=== PATIENT | female | born 1950 | race Caucasian/White ===

== ENCOUNTER → 2018-01-02 | Outpatient (CLI) | payer MEDICARE, OTHER ==
[~2018-01-02] MED LIST: ADV100/50 INH; ALB17R INH; ALB18R INH; ALBU8.5H IH; ASPI-1441 PO; CEPH500C24 PO; CIPHCO EACH EAR; COREDS EACH EAR; FLU45SYR25 IM ONLY; FLUT16SP19 NS; FLUT1AER INH; FLUT1DIS28 IH; FLUT1DIS29 IH; FUR20 PO; FURO-45 PO; GABA-547 PO; GLUC500C29 PO; GUALA600 PO; HYDR-4228 PO; LEV100 PO; LEV112 PO; LEV125 PO; LEV25 PO; LEVO-3 PO; LEVO150T78 PO; MELO-207 PO; METR-160 PO; METR70GE2 PV; MULT-820 PO; OLOOD OU; ONDA4TAB9 PO; OXYC-373 PO; OXYC-823 PO; OXYC5CAP21 PO; PNEI IJ; PNEU0.5D3 IM; PROC10TA95 PO; SULF5DRO OU; TIO18R INH; VALA100059 PO; ZOLP-358 PO; ZOLP-360 PO; [UNRECOGNIZED DRUG - CODE] PO; [UNRECOGNIZED DRUG - CODE] PO; [UNRECOGNIZED DRUG - CODE] PO; [UNRECOGNIZED DRUG - CODE] TD
[2018-01-02 09:31] LABS: PLATELET COUNT, AUTOMATED 225 K/uL (150-450)
== END ==
LOC: LAB 08:39
PROVIDERS: ATTEND Internal Medicine
DX: C34.90 Malignant neoplasm of unspecified part of unspecified bronchus or lung (principal); J44.9 Chronic obstructive pulmonary disease, unspecified; I10 Essential (primary) hypertension; E03.9 Hypothyroidism, unspecified; D75.1 Secondary polycythemia
CPT/HCPCS: 36415; 82040; 82247; 82310; 82374; 82435; 82565; 82607; 82746; 82947; 84075; 84132; 84155; 84295; 84443; 84450; 84460; 84520; 85025

== ENCOUNTER → 2018-01-19 | Outpatient (CLI) | payer MEDICARE, OTHER ==
[~2018-01-19] MED LIST changes: +PREG50CA48 PO
[2018-01-19 16:29] LABS: PLATELET COUNT, AUTOMATED 201 K/uL (150-450)
== END ==
LOC: LAB 16:00
PROVIDERS: ATTEND Internal Medicine
DX: E03.9 Hypothyroidism, unspecified (principal); R53.83 Other fatigue; C34.90 Malignant neoplasm of unspecified part of unspecified bronchus or lung; R20.0 Anesthesia of skin; J44.9 Chronic obstructive pulmonary disease, unspecified
CPT/HCPCS: 36415; 82040; 82247; 82310; 82374; 82435; 82565; 82947; 84075; 84132; 84155; 84295; 84439; 84443; 84450; 84460; 84520; 85025

== ENCOUNTER → 2018-01-21 | Outpatient (CLI) | payer MEDICARE, OTHER ==
[~2018-01-21] MED LIST changes: +GADOBENATE 529MG/1ML 15ML VIAL IVP ONE
--- NOTE | 2018-01-21 14:46 | RADIOLOGY IMAGING REPORT ---
FACILITY: [facility] - [place] PATIENT NAME: Toña Yoder : 1950 MR: [id number] V: [id number] EXAM DATE: ORDERING PHYSICIAN: HODA RODRIGUEZ TECHNOLOGIST: Location: [facility] Patient: Toña Yoder : 1950 Visit/Account:[id number] Date of Sevice: 01/21/2018 BRAIN W W/O CONTRAST History of lung cancer, numbness in both arms and legs x3 months, confusion ADDITIONAL PERTINENT HISTORY: None. COMPARISON STUDIES: July 29, 2017 TECHNIQUE: Multi-planar, multi-sequence brain MRI was performed with and without IV contrast adminis tration. Contrast: 14 mL MultiHance FINDINGS: Ventricles / sulci / fissures: Negative. Masses / hemorrhage / midline shift: Negative. White matter: Patchy T2 hyperintensities are again noted in the govind and in the deep white matter bi laterally that appear relatively unchanged. There is no associated mass effect or restricted diffusi on or contrast enhancement. Mejia-white differentiation: Normal. Extra-axial fluid collections: Negative. Intracranial vasculature and dural sinuses: Negative. Skull base / calvarium: Negative. Visualized mastoid air cells / paranasal sinuses: There is fluid in the left mastoid air cells Orbits: Negative. Upper neck:Negative. IMPRESSION: Nonspecific white matter disease as described above appear similar to the prior study with no evidenc e of contrast enhancement, mass effect or restricted diffusion. The appearance is suspicious for chr onic small vessel ischemia No MR evidence of intracranial metastases Fluid noted in the left mastoid air cells possibly related to mastoiditis Report Dictated By: Phyllis Palumbo MD at 01/21/2018 2:35 PM Report E-Signed By: Phyllis Palumbo MD at 01/21/2018 2:42 PM WSN:[email or web address]
== END ==
LOC: MRI 07:27
PROVIDERS: ATTEND Internal Medicine
DX: R90.82 White matter disease, unspecified (principal)
CPT/HCPCS: 70553; A9577

== ENCOUNTER 2018-02-09 11:50 | Outpatient (RCR) | payer MEDICARE, OTHER ==
[2017-08-06 10:18] VITALS: BP 107/70
[~2018-02-09 11:50] MED LIST changes: -GADOBENATE 529MG/1ML 15ML VIAL IVP ONE
[2018-02-09 12:09] LABS: PLATELET COUNT, AUTOMATED 225 K/uL (150-450)
--- NOTE | 2018-02-09 14:25 | RADIOLOGY IMAGING REPORT ---
FACILITY: [facility] - [place] PATIENT NAME: Toña Yoder : 1950 MR: [id number] V: [id number] EXAM DATE: ORDERING PHYSICIAN: WIN ESPINOZA TECHNOLOGIST: Location: [facility] Patient: Toña Yoder : 1950 Visit/Account:[id number] Date of Sevice: 02/09/2018 CHEST W/O CONTRAST History: Lung cancer TECHNIQUE: Contiguous axial images were performed through the chest to the level of the adrenal gla nds. No IV contrast was administered. Coronal and sagittal reformatting was also performed. Dose Lowe ring Technique One of the following dose optimization techniques was utilized in the performance of this exam: Autom ated exposure control; adjustment of the mA and/or kV according to the patient's size; or use of an i terative reconstruction technique. Specific details can be referenced in the facility's radiology C T exam operational policy. COMPARISON STUDIES: October 17, 2017. Lungs / Pleura: Severe centrilobular emphysema again seen throughout the lungs. Small amount of sc arring in the lingula appears similar to the prior study. There are fibrotic changes in both pulmona ry apices. There is now a small amount of patchy airspace consolidation in the medial right upper lo be consistent with scarring/atelectasis. There Is now a patchy area of airspace consolidation and br onchial thickening in the posterior aspect the right upper lobe Mediastinum/nodes: Mediastinal structures not ideally evaluated due to lack of intravenous contrast. . No new or enlarging lymph nodes are identified Heart and vessels: negative. Musculoskeletal / Body wall: No aggressive appearing bone lesions are seen Upper abdomen: Visualized abdominal viscera negative. IMPRESSION: Severe centrilobular emphysema Scarring in the lingula and biapical fibrotic changes appear similar to the prior study New area of patchy airspace consolidation in the medial right upper lobe consistent with scarring/ate lectasis There is now patchy area of airspace consolidation and peribronchial thickening in the posterior aspe ct the right upper lobe. This could represent an acute infectious/inflammatory process although shor t-term interval follow-up recommended Report Dictated By: Phyllis Palumbo MD at 02/09/2018 2:08 PM Report E-Signed By: Phyllis Palumbo MD at 02/09/2018 2:21 PM WSN:[email or web address]
[2018-02-16] MEDS ORDERED: GADOBENATE 529MG/1ML 15ML VIAL IVP ONE (12:46)
[2018-03-11] MEDS ORDERED: MIRT7.5T2 PO (14:08)
[2018-03-12] MEDS ORDERED: ONDA4TAB9 PO (10:25)
[2018-03-12] MEDS ORDERED: IPRA3AMP21 IH (10:25)
== END 2018-03-27 09:57 | disposition home or self-care (01) ==
LOC: SPU 11:50
PROVIDERS: ATTEND Radiology Radiation Oncology
DX: J43.2 Centrilobular emphysema (principal)
CPT/HCPCS: 36415; 71250; 82040; 82247; 82310; 82374; 82435; 82565; 82947; 84075; 84132; 84155; 84295; 84450; 84460; 84520; 85025; A9577

== ENCOUNTER → 2018-02-16 | Outpatient (CLI) | payer MEDICARE, OTHER ==
--- NOTE | 2018-02-16 15:31 | RADIOLOGY IMAGING REPORT ---
FACILITY: [facility] PATIENT NAME: Toña Yoder : 1950 MR: [id number] V: [id number] EXAM DATE: ORDERING PHYSICIAN: PRATIBHA GAR TECHNOLOGIST: Location: [facility] Patient: Toña Yoder : 1950 Visit/Account:[id number] Date of Sevice: 02/16/2018 EXAMINATION: Cervical spine MRI without IV contrast Cervical spine MRI with IV contrast History: Spasticity, numbness and tingling. COMPARISON STUDIES: none TECHNIQUE: Multi-planar, multi-sequence cervical spine MRI was performed before and after IV contras t. Contrast: 13 mL of IV MultiHance FINDINGS: Paraspinal soft tissues negative. Mild reversal of the normal cervical lordosis with the apex at C5- C6. Vertebral bodies have normal height. No subluxation. Desiccation and moderate loss of disc spa ce height C4-5 through C6-C7. Cervical and visualized thoracic cord have normal signal intensity and caliber. C2-C3: Negative. C3-C4: Mild to moderate left foraminal stenosis due to uncovertebral joint hypertrophy. No central c anal stenosis. C4-C5: Mild bilateral foraminal stenosis. No central canal stenosis. C5-C6: Moderately severe left foraminal stenosis. Broad-based disc bulge without central canal steno sis. C6-C7: Mild disc bulge without significant stenosis. C7-T1: Negative. IMPRESSION: Cervical spondylosis resulting in foraminal stenosis which appears worst on the left at C 5-C6. There is no significant narrowing of the central canal. Report Dictated By: Bala Schaefer MD at 02/16/2018 3:19 PM Report E-Signed By: Bala Schaefer MD at 02/16/2018 3:25 PM WSN:[id number]
--- NOTE | 2018-02-16 15:33 | RADIOLOGY IMAGING REPORT ---
FACILITY: [facility] PATIENT NAME: Toña Yoder : 1950 MR: [id number] V: [id number] EXAM DATE: ORDERING PHYSICIAN: PRATIBHA GAR TECHNOLOGIST: Location: [facility] Patient: Toña Yoder : 1950 Visit/Account:[id number] Date of Sevice: 02/16/2018 T SPINE W W/O CONTRAST EXAMINATION: Thoracic spine MRI without IV contrast Thoracic spine MRI with IV contrast History: Spasticity, numbness and tingling. COMPARISON STUDIES: none TECHNIQUE: Multi-planar, multi-sequence thoracic spine MRI was performed before and after IV contras t. Contrast: 13 mL of IV MultiHance FINDINGS: Paraspinal soft tissues negative. Vertebral bodies have normal height. Marrow signal intensity appe ars benign. Disc spaces within normal limits. No central canal stenosis. No significant foraminal compromise. Thoracic cord has normal signal intensity and caliber. No abnormal enhancement. IMPRESSION: Negative MRI of the thoracic spine. Report Dictated By: Bala Schaefer MD at 02/16/2018 3:25 PM Report E-Signed By: Bala Schaefer MD at 02/16/2018 3:28 PM WSN:[id number]
== END ==
LOC: MRI 00:39
PROVIDERS: ATTEND Psychiatry & Neurology Neurology
DX: M47.892 Other spondylosis, cervical region (principal)
CPT/HCPCS: 72156; 72157

== ENCOUNTER 2018-02-17 09:54 | Outpatient (RCR) | payer MEDICARE, OTHER | END 2018-02-19 14:52 | disposition home or self-care (01) | LOC: RAON 09:54 | PROVIDERS: ATTEND Radiology Radiation Oncology | DX: C34.91 Malignant neoplasm of unspecified part of right bronchus or lung (principal); J44.9 Chronic obstructive pulmonary disease, unspecified; E03.9 Hypothyroidism, unspecified; K21.9 Gastro-esophageal reflux disease without esophagitis; Z92.3 Personal history of irradiation | CPT/HCPCS: 99212 ==

== ENCOUNTER → 2018-03-11 | Outpatient (CLI) | payer MEDICARE, OTHER ==
[~2018-03-11] MED LIST changes: +IPRA3AMP21 IH; +MIRT7.5T2 PO
[2018-03-11 12:14] LABS: PLATELET COUNT, AUTOMATED 216 K/uL (150-450)
== END ==
LOC: LAB 11:54
PROVIDERS: ATTEND Internal Medicine
DX: J44.9 Chronic obstructive pulmonary disease, unspecified (principal); E03.9 Hypothyroidism, unspecified; C34.90 Malignant neoplasm of unspecified part of unspecified bronchus or lung
CPT/HCPCS: 36415; 82040; 82247; 82310; 82374; 82435; 82565; 82728; 82947; 83540; 83550; 84075; 84132; 84155; 84295; 84439; 84443; 84450; 84460; 84520; 85025

== ENCOUNTER → 2018-03-16 | Outpatient (CLI) | payer MEDICARE, OTHER | LOC: RESP 01:03 | PROVIDERS: ATTEND Internal Medicine | DX: J98.4 Other disorders of lung (principal); J43.8 Other emphysema; R06.09 Other forms of dyspnea; C34.11 Malignant neoplasm of upper lobe, right bronchus or lung | CPT/HCPCS: 36600; 82803; 94010; 94726; 94729 ==

== ENCOUNTER → 2018-03-18 | Outpatient (CLI) | payer MEDICARE, OTHER ==
[~2018-03-18] MED LIST changes: +IOPAMIDOL 76% 75 ML INFUS BTL 75 ML ONE
--- NOTE | 2018-03-18 14:43 | RADIOLOGY IMAGING REPORT ---
FACILITY: [facility] - [place] PATIENT NAME: Toña Yoder : 1950 MR: [id number] V: [id number] EXAM DATE: ORDERING PHYSICIAN: HODA RODRIGUEZ TECHNOLOGIST: Location: [facility] Patient: Toña Yoder : 1950 Visit/Account:[id number] Date of Sevice: 03/18/2018 CHEST W W/O CONTRAST History: history of lung cancer ADDITIONAL CLINICAL HISTORY: None TECHNIQUE: Contiguous axial images were performed through the chest to the level of the adrenal gla nds with and without IV contrast. Coronal and sagittal reformatting was also performed. Dose Loweri ng Technique One of the following dose optimization techniques was utilized in the performance of this exam: Autom ated exposure control; adjustment of the mA and/or kV according to the patient's size; or use of an i terative reconstruction technique. Specific details can be referenced in the facility's radiology C T exam operational policy. Contrast: 75 mL [id number] COMPARISON STUDIES: February 09, 2018. Lungs / Pleura: Small area of airspace consolidation in the medial right upper lobe appears unchang ed likely representing scarring. The patchy area of airspace consolidation and bronchial thickening in the posterior aspect right uppe r lobe appears slightly improved and may represent an improving infectious/inflammatory process. Small amount of scarring in the lingula and in the biapical fibrotic changes appear relatively unchan ged. Linear stranding the lung bases also stable consistent with scarring. Diffuse centrilobular emphysema throughout the lungs Mediastinum/nodes: There is no evidence of pathologic-appearing hilar or mediastinal adenopathy. Heart and vessels: negative. Musculoskeletal / Body wall: No aggressive appearing bone lesions are identified Upper abdomen: negative. IMPRESSION: A small area of airspace consolidation medial right upper lobe appears unchanged and likely represent s scarring. There are additional stable areas of scarring throughout the lungs as detailed above Small amount of airspace consolidation and peribronchial thickening in the posterior aspect right upp er lobe appears slightly improved and may represent improving infectious/inflammatory process. Shanelle nued surveillance recommended Diffuse centrilobular emphysema throughout the lungs No evidence of pathologic-appearing hilar or mediastinal adenopathy Report Dictated By: Phyllis Palumbo MD at 03/18/2018 2:28 PM Report E-Signed By: Phyllis Palumbo MD at 03/18/2018 2:38 PM WSN:[email or web address]
--- NOTE | 2018-03-19 14:56 | RADIOLOGY IMAGING REPORT ---
FACILITY: [facility] [place] PATIENT NAME: ELIZABETH MOSER : [id number] MR: [id number] V: [id number] EXAM DATE: ORDERING PHYSICIAN: HODA RODRIGUEZ TECHNOLOGIST: Afshan Rothman EXAMINATION:TWO-DIMENSIONAL ECHOCARDIOGRAPH REASON:HX LUNG CA/SOB. FINISHED RADIATION THERAPY A COUPLE MONTHS AGO 2D Measurements (normal values in centimeters) LV endLV endRV endVent.LV PostAorticLeftPercent DiastolicSystolicDiastolicSeptumWallRootAtriumShortening (3.5-5.7)(0.9-2.6)(0.6-1.1)(0.6-1.1)(2.0-3.7)(1.9-4.0)(25-35%) [id number] STROKE VOLUME: 54ml ESTIMATED EJECTION FRACTION:54% PARASTERNAL LONG AXIS: View was very technically difficult. The overall left ventricular systolic function using Definity contrast appears to be normal. Chamber sizes also appear to be normal. Color examination of the valves reveals a trace of mitral & aortic insufficiency present. PARASTERNAL SHORT AXIS: Overall left ventricular function again appears to be normal. No specific wall motion abnormalities are noted. Aortic valve was not well seen. APICAL FOUR AND TWO CHAMBER: With Definity contrast left ventricular systolic function appears to be normal. Chamber sizes also appear to be normal. No wall motion abnormalities are noted. There is a trace amount of tricuspid insufficiency & the tricuspid regurgitation Vmax measured at 1.49m/sec. Estimated right atrial pressure was 3mm Hg. Estimated aortic valve area was measured within normal ranges at 2.4cm2. Mitral valve area measured within normal ranges at 2.5cm2. Left atrial & right atrial volumes were measured within normal ranges at 20 & 6ml/m2 respectively. SUBCOSTAL VIEW: No pericardial effusion was noted. No atrioseptal or ventriculoseptal defects were appreciated. Doppler examination of the mitral valve in diastole does reveal the A wave > E wave. OVERALL IMPRESSION: 1. Normal left ventricular ejection fraction of approximately 54% with a Grade 1 decrease in diastolic function. No wall motion abnormalities are noted. 2. Chamber sizes are normal. 3. The view was somewhat technically difficult & Definity contrast was used. 4. Trileaflet aortic valve with no abnormalities noted except for a trace of aortic insufficiency present. 5. A trace amount of mitral, pulmonic & tricuspid insufficiency. The estimated right ventricular systolic pressures measured within normal ranges at 12mm Hg. 6. Right ventricular function appears to be the lower range of normal. 7. In comparison to the examination done on 12/16/2007, heart chambers have decreased in size. The left ventricular hypertrophy is now in the normal range. The right ventricular systolic pressure has significantly decreased from 64mm Hg down to the normal range. Of note, there was not a good view of the tricuspid regurgitation Vmax to accurately measure the rv pressures. Dictated by: Mark Anthony Kinney M.D. on 03/18/2018 at 19:19 Transcribed by: SAMEER on 03/19/2018 at 8:32 Approved by: Mark Anthony Kinney M.D. on 03/19/2018 at 14:55 [facility]
== END ==
LOC: CT 01:11
PROVIDERS: ATTEND Internal Medicine
DX: J43.8 Other emphysema (principal); R91.8 Other nonspecific abnormal finding of lung field; I50.30 Unspecified diastolic (congestive) heart failure; I35.1 Nonrheumatic aortic (valve) insufficiency; I34.0 Nonrheumatic mitral (valve) insufficiency; I07.1 Rheumatic tricuspid insufficiency; I37.1 Nonrheumatic pulmonary valve insufficiency
CPT/HCPCS: 71270; 93306; Q9967

== ENCOUNTER 2018-04-10 13:00 | Outpatient (RCR) | payer MEDICARE, OTHER ==
--- NOTE | 2018-01-28 15:52 | OT INITIAL EVALUATION ---
SUBJECTIVE: Patient is a 67 year old left hand dominant female referred to OP OT services for UB weakness and UB bilateral neuropathy s/p radiation treatments for lung cancer. Patient reports that she started experiencing the numbness about 2 weeks after her last radiation treatment August of 2017. Patient reports that her numbness starts at her hands and goes all the way up to her shoulders on both sides. She also reports numbness from the middle of her chest down to her feet. Patient states that due to her inability to feel, she is having a difficult time performing her ADLs and so her helps her. She also reports that she has a difficult time carrying and holding onto objects with either hand. Patient comes to therapy in hopes that the numbness can be resolved and that she can gain strength back in her UB including her hands. Previous Medical History: please refer to chart Current Limitations: bilateral numbness throughout her UB, decreased ability to perform ADLs, decreased ability to carry objects without dropping them Occupation: N/A OBJECTIVE: ROM: Right Left Shoulder Flexion WFL WFL Shoulder Extension WFL WFL Shoulder Abduction WFL WFL Elbow Flexion WFL WFL Wrist Extension WFL WFL Strength: MMT: Right Left Shoulder Flexion 3/5 4/5 Shoulder Extension 3/5 4/5 Shoulder Abduction 3/5 4/5 Elbow Flexion 3/5 4/5 Wrist Extension 3/5 4/5 (5= normal, 4= good, 3= fair, 2= poor, 1= trace) File Clerk Right = 28.7# (Age/gender normative= 49.6#) Left= 36.7# (Age/gender normative= 41#) Lateral Pinch Right = 9# (Age/gender normative= 15#) Left= 9.3# (Age/gender normative= 14.3#) 3 Point Pinch Right = 6.3# (Age/gender normative= 14.2#) Left= 7.5# (Age/gender normative= 13.7#) Sensation: reports of numbness in both arms from hands to shoulder Vision: reports that she has poor vision with her right eye after cataract surgery-blurry, dark with only a small area for ability to see Special Test: 9 Hole Peg Test (dexterity) Right= 2 minutes and 15 seconds (Age/gender normative= 19.5 seconds ) Left= 54 seconds (Age/gender normative= 21.4 seconds) ASSESSMENT Patient presents with decreased bilateral UB strength, right side is weaker compared to the left side. Patient presents with decreased cooker cleaner and pinch strength, again the right side is weaker. Patient presents with decreased fine motor coordination with both hands, right side significantly more affected compared to the left side. The neuropathy appears to be playing a significant role in the patient's ability to perform her ADLs and her ability to excelsior picker, carry and hold onto objects. Patient to benefit from OP OT intervention to help increase UB strength and fine motor coordination and to help reduce numbness and increase independence with ADLs. Short Term Goals 1.Patient will decrease time on the 9 Hole Peg Test by 10 seconds on the right hands in order to complete fine motor coordination activities in a timely manner. 2.Patient will complete HEP without assistance. 3.Patient will report of decreased symptoms with the use of heated modalities to help hold onto objects. 4.Patient will increase right UB strength from 3/5 to 4/5 to increase overall functional endurance when completing ADLs. PLAN: Plan to see patient 2 times a week for 6 weeks. Plan of care to include: self care re-training, ther ex, there act, adaptive equipment training, energy conservation techniques, massage, paraffin Thank you for this referral. If you have any questions, concerns, or comments about this report or plan, please contact me at [phone]. Elaine Rios MS, OTR/L Occupational Therapist [facility]
--- NOTE | 2018-01-29 15:48 | PT INITIAL EVALUATION ---
MEDICAL DIAGNOSIS: Generalized Fatigue, Numbness TREATMENT DIAGNOSIS: Generalized weakness and fatigue, Neuropathy DATE OF ONSET: 01/27/18 SUBJECTIVE: Toña is a 67 year-old female presenting to physical therapy following completion of radiation treatment for lung cancer resulting in generalized fatigue, decreased activity and generalized weakness. Pt has an extensive history of smoking, recently quit,and has recently developed neuropathy in extremities as well. Pt goals for PT are to become more functional with ADL's. Following completion of treatment pt reports that she is very sedentary sleeping 20 hours a day and spending most of her day sitting when she isn't going up and down the stairs of her house to go to the bathroom. Pt is present throughout session and reports that she rarely gets up. Post treatment pt also reports high degrees of nausea which she is also seeing a GI MD for later this week. Pt finished radiation treatment on 2016. Pt is also seeing an OT concurrently with frequent reports of dropping items and difficulty with dressing. Pt reports no pain at rest currently. REHAB PROBLEM LIST: Decreased Strength Impaired Transfers Decreased Endurance Decreased Balance Decreased Function Decreased ADL's Decreased Mobility Decreased Gait PREVIOUS MEDICAL HISTORY: See EMR OCCUPATION: Retired OBJECTIVE: Pt presents seated in a W/C which she reports she doesn't typically use unless she has prolonged distances of ambulation. ROM: LE ROM WFL Strength: LE MMT: hip: flexion: R 3+/5, L 3/5, ext: R 4+/5, L 4/5, abd/add: B 4/ 5, Knee: flexion/ext: B 4/5, Ankle: DF: B 4/5, PF: B 3+/5. Sensation: Pt has diminished sensation to light touch below knee level B but sensation is intact to deep pressure throughout. Sensation is absent to light touch on feet. Mobility: 5 times sit<>stand: 31 seconds. Pt uses B UE for transfers from seated<>standing. Gait: Pt reports that at home she uses no AD for ambulation but frequently reaches for ramirez. Pt ambulates with a wide ROXANE with occasional staggering. Dynamic Gait Index Score (DGI): 11/23 ASSESSMENT: Toña shows signs and symptoms consistent with generalized weakness and deconditioning secondary to inactivity as well as recent radiation treatment for lung cancer. Pt would benefit from PT to address the above listed impairments as well as improve pt function with ADL's and improve mobility. Short Term Goals In 3 weeks pt will increase all LE MMT to >4/5 for improved strength with ADL's and mobility. In 6 weeks pt will improve 5 times sit<>stand to without UE support and in <15 seconds for improved function with ADL's and decreased fall risk. In 6 weeks pt will improve DGI score for safety of ambulation and decreased fall risk to 22/24. Patient's Goals Improve strength and endurance PLAN: Patient to be seen for Manual Therapy/STM/MET Strengthening/condition Ice/Heat Range of Motion Spinal Stabilization Ultrasound Stretching Iontophoresis Neuromuscular Re-ed Closed Chain Program Electrical Stim Posture/Body mechanics Gait Trg/Balance Trg Biofeedback Home Exercise Program Mech./Manual Traction Therapeutic Activities Pelvic Floor 3x/Week for 6 Weeks If you have any questions, comments, or concerns about this report or plan, please contact me at . Thank you, Makenzie Valdes, PT, DPT, CLT [facility]
--- NOTE | 2018-03-11 14:15 | EKG ---
FACILITY: [facility] - [place] PATIENT NAME: ELIZABETH MOSER : [id number] MR: [id number] V: [id number] EXAM DATE: ORDERING PHYSICIAN: KALE HUGO TECHNOLOGIST: FLORI Mendez Reason : TACHYCARDIC Blood Pressure : / mmHG Vent. Rate : 079 BPM Atrial Rate : 079 BPM P-R Int : 184 ms QRS Dur : 086 ms QT Int : 380 ms P-R-T Axes : 081 -65 082 degrees QTc Int : 435 ms Normal sinus rhythm Left axis deviation Abnormal ECG No previous ECGs available Referred By: HODA RODRIGUEZ Confirmed By:
--- NOTE | 2018-03-11 14:55 | PT PLAN OF CARE ---
Physician: Raj Oliva MD Patient is being seen: 2-3x/Week Therapist: Makenzie Valdes, PT, DPT, CLT Medical Diagnosis: Generalized Fatigue, Numbness Treatment Diagnosis: Generalized weakness and fatigue, Neuropathy Date of Onset: 01/27/18 Date of Initial Evaluation: 01/28/18 Date patient was last seen: 03/10/18 Number of treatments: 8 Number of cancellations/No shows: 1 INTERVENTIONS: Manual Therapy/STM/MET Strengthening/condition Ice/Heat Range of Motion Spinal Stabilization Ultrasound Stretching Iontophoresis Neuromuscular Re-ed Closed Chain Program Electrical Stim Posture/Body mechanics Gait Trg/Balance Trg Biofeedback Home Exercise Program Mech./Manual Traction Therapeutic Activities Pelvic Floor GOALS: In 3 weeks pt will increase all LE MMT to >4/5 for improved strength with ADL's and mobility. In 6 weeks pt will improve 5 times sit<>stand to without UE support and in <15 seconds for improved function with ADL's and decreased fall risk. In 6 weeks pt will improve DGI score for safety of ambulation to 22/24. PATIENT'S GOAL: Improve strength and endurance Status of Patient's Goals: In Progress Patient Compliance: Fair Prognosis: Fair Reasons for continuing therapy: Toña shows initial progress with endurance and strengthening resulting in increased functional balance with ambulation. Today pt reported that she was feeling increased fatigue with occasional light headedness, and reported that as she was going up the stairs she had to stop and sit down because she was fearful of falling secondary to symptoms. Following assessment pt showed good oxygen level maintenance between 95-98%. However, HR levels appear elevated and were repeatedly tested at rest and with increase in activity with little fluctuation around 110-111 bpm and never dropping lower. Referring PCP was contacted by primary PT for possible EKG evaluation of tachycardia, and pt was referred to follow up with PCP. Prior to this event pt demonstrated good heart rate response with exercise ROM: LE ROM WFL Strength: LE MMT: hip: flexion: R 3+/5, L 3/5, ext: R 4+/5, L 4/5, abd/add: B 4/ 5, Knee: flexion/ext: B 4/5, Ankle: DF: B 4/5, PF: B 3+/5. Mobility: 5 times sit<>stand: 31 seconds. Pt uses B UE for transfers from seated<>standing. 03/10/18 Vitals: O2 saturation: 97-98%, HR: 110-111 bpm, increased fatigue with need for frequent rest breaks with ambulation If you have any questions or concerns, please feel free to contact me at . Thank you, Makenzie Valdes, PT, DPT, CLT MTDD
[~2018-04-10 13:00] MED LIST changes: -IOPAMIDOL 76% 75 ML INFUS BTL 75 ML ONE; +PROC-5 PO; -PROC10TA95 PO
--- NOTE | 2018-04-23 15:39 | PT PLAN OF CARE ---
Physician: Raj Oliva MD Patient is being seen: 2-3x/Week Therapist: Makenzie Valdes, PT, DPT, CLT Medical Diagnosis: Generalized Fatigue, Numbness Treatment Diagnosis: Generalized weakness and fatigue, Neuropathy Date of Onset: 01/27/18 Date of Initial Evaluation: 01/28/18 Date patient was last seen: 04/22/18 Number of treatments: 13 Number of cancellations/No shows: 5 INTERVENTIONS: Manual Therapy/STM/MET Strengthening/condition Ice/Heat Range of Motion Spinal Stabilization Ultrasound Stretching Iontophoresis Neuromuscular Re-ed Closed Chain Program Electrical Stim Posture/Body mechanics Gait Trg/Balance Trg Biofeedback Home Exercise Program Mech./Manual Traction Therapeutic Activities Pelvic Floor GOALS: In 3 weeks pt will increase all LE MMT to >4/5 for improved strength with ADL's and mobility. In 6 weeks pt will improve 5 times sit<>stand to without UE support and in <15 seconds for improved function with ADL's and decreased fall risk. In 6 weeks pt will improve DGI score for safety of ambulation to 22/24. PATIENT'S GOAL: Improve strength and endurance Status of Patient's Goals: Discontinued Patient Compliance: Poor Prognosis: Fair Reasons for discharge from therapy: Toña is to discharge from physical therapy at this time secondary to poor pt compliance with attendance. Upon discharge Toña showed progress with endurance and strengthening resulting in increased functional balance with ambulation. However, pt showed poor compliance with HEP or increased movement outside of PT visits and began to have frequent cancellations and no-shows. At Toña's last visit she reported increased fatigue and that she was spending the majority of her time outside of PT in bed. Upon discharge pt is to continue with strengthening and endurance HEP and walk more frequently with spouse to improve mobility. Pt is to continue with PT at a later time if indicated. ROM: LE ROM WFL Strength: LE MMT: hip: flexion: R 3+/5, L 3/5, ext: R 4+/5, L 4/5, abd/add: B 4/ 5, Knee: flexion/ext: B 4/5, Ankle: DF: B 4/5, PF: B 3+/5. Mobility: 5 times sit<>stand: 31 seconds. Pt uses B UE for transfers from seated<>standing. 03/10/18 Vitals: O2 saturation: 97-98%, HR: 110-111 bpm, increased fatigue with need for frequent rest breaks with ambulation If you have any questions or concerns, please feel free to contact me at . Thank you, Makenzie Valdes, PT, DPT, CLT MTDD
== END 2018-04-10 18:00 | disposition home or self-care (01) ==
LOC: PT 13:00
PROVIDERS: ATTEND Internal Medicine
DX: M62.81 Muscle weakness (generalized) (principal); R53.83 Other fatigue; R20.0 Anesthesia of skin; C34.90 Malignant neoplasm of unspecified part of unspecified bronchus or lung; J43.9 Emphysema, unspecified
CPT/HCPCS: 97162; 97165; 97168

== ENCOUNTER → 2018-05-14 | Outpatient (CLI) | payer MEDICARE, OTHER | LOC: LAB 10:00 | PROVIDERS: ATTEND Psychiatry & Neurology Neurology | DX: G62.9 Polyneuropathy, unspecified (principal); C34.00 Malignant neoplasm of unspecified main bronchus | CPT/HCPCS: 36415; 82607; 82746 ==

== ENCOUNTER 2018-05-19 11:55 | Outpatient (RCR) | payer MEDICARE, OTHER ==
--- NOTE | 2018-05-18 14:32 | RADIOLOGY IMAGING REPORT ---
FACILITY: [facility] PATIENT NAME: Toña Yoder : 1950 MR: [id number] V: [id number] EXAM DATE: ORDERING PHYSICIAN: WIN ESPINOZA TECHNOLOGIST: Location: [facility] Patient: Toña Yoder : 1950 Visit/Account:[id number] Date of Sevice: 05/18/2018 CT chest without IV contrast History: History of lung cancer. Follow-up. COMPARISON STUDIES: CT chest 03/18/2018. TECHNIQUE: Axial CT images were obtained through the chest without IV contrast. Reformatted coronal and sagittal images were also obtained. One of the following dose optimization techniques was utilized in the performance of this exam: Autom ated exposure control; adjustment of the mA and/or kV according to the patient's size; or use of an i terative reconstruction technique. Specific details can be referenced in the facility's radiology C T exam operational policy. FINDINGS: CT Chest- Lower neck: Negative Lungs and pleura: Right upper lobe focal area of groundglass opacity abutting the major fissure is u nchanged. Bilateral upper lobe anterior linear parenchymal scarring is stable. Background of advanced pulmonary emphysema with upper lobe predominance and central airway thickening. Mediastinum and sarkis: Normal Heart, aorta, and great vessels: Negative Bones: Negative Chest wall: Negative Upper Abdomen: Negative IMPRESSION: 1. Stable areas of pleural and parenchymal scarring in the upper lobes. 2. Background of pulmonary emphysema and chronic bronchitis. 3. No CT findings concerning for recurrent lung carcinoma or metastatic disease. Report Dictated By: Ayesha Almaraz MD at 05/18/2018 2:21 PM Report E-Signed By: Ayesha Almaraz MD at 05/18/2018 2:28 PM WSN:[id number]
[~2018-05-19 11:55] MED LIST changes: +IPRA3AMP10 IH; -IPRA3AMP21 IH
[2018-05-20] MEDS ORDERED: LEVO150T78 PO (09:30)
[2018-05-20] MEDS ORDERED: [UNRECOGNIZED DRUG - CODE] MC (13:24)
[2018-05-25] MEDS ORDERED: FURO-45 PO ×2 (13:12→16:05)
[2018-05-25] MEDS ORDERED: MIRT-1 PO (13:12)
[2018-05-25] MEDS ORDERED: LEV125 PO (16:05)
== END 2018-06-09 12:29 | disposition home or self-care (01) ==
LOC: RAON 11:55
PROVIDERS: ATTEND Radiology Radiation Oncology
DX: R91.8 Other nonspecific abnormal finding of lung field (principal); J44.9 Chronic obstructive pulmonary disease, unspecified; E03.9 Hypothyroidism, unspecified; K21.9 Gastro-esophageal reflux disease without esophagitis; Z92.3 Personal history of irradiation; Z79.899 Other long term (current) drug therapy; F17.210 Nicotine dependence, cigarettes, uncomplicated
CPT/HCPCS: 71250; 99212

== ENCOUNTER → 2018-05-25 | Outpatient (CLI) | payer MEDICARE, OTHER ==
[~2018-05-25] MED LIST changes: -IPRA3AMP10 IH; +IPRA3AMP21 IH; +MIRT-1 PO; +[UNRECOGNIZED DRUG - CODE] MC
[2018-05-25 13:34] LABS: PLATELET COUNT, AUTOMATED 234 K/uL (150-450)
== END ==
LOC: LAB 13:16
PROVIDERS: ATTEND Internal Medicine
DX: J44.9 Chronic obstructive pulmonary disease, unspecified (principal); E03.9 Hypothyroidism, unspecified; C34.90 Malignant neoplasm of unspecified part of unspecified bronchus or lung; G62.9 Polyneuropathy, unspecified; R63.4 Abnormal weight loss
CPT/HCPCS: 36415; 82040; 82247; 82310; 82374; 82435; 82565; 82947; 84075; 84132; 84155; 84295; 84439; 84443; 84450; 84460; 84520; 85025

== ENCOUNTER → 2018-08-20 | Outpatient (CLI) | payer MEDICARE, OTHER ==
[~2018-08-20] MED LIST changes: +IPRA3AMP10 IH; -IPRA3AMP21 IH; +SULF5DRO OP
--- NOTE | 2018-08-20 10:55 | RADIOLOGY IMAGING REPORT ---
FACILITY: [facility] [place] PATIENT NAME: Toña Yoder : 1950 MR: [id number] V: [id number] EXAM DATE: ORDERING PHYSICIAN: ASHLEY RICHARDSON TECHNOLOGIST: Location: [facility] [place] Patient: Toña Yoder : 1950 Visit/Account:[id number] Date of Sevice: 08/20/2018 CHEST W/O CONTRAST History: Lung cancer follow-up TECHNIQUE: Contiguous axial images were performed through the chest to the level of the adrenal gla nds. No IV contrast was administered. Coronal and sagittal reformatting was also performed. Dose Lowe ring Technique One of the following dose optimization techniques was utilized in the performance of this exam: Autom ated exposure control; adjustment of the mA and/or kV according to the patient's size; or use of an i terative reconstruction technique. Specific details can be referenced in the facility's radiology C T exam operational policy. COMPARISON STUDIES: May 18, 2018. Lungs / Pleura: Centrilobular emphysema again seen throughout the lungs. There is biapical pleural thickening again seen appears relatively symmetric.. Linear scarring in the anterior upper lobes al so again noted Focal area of groundglass opacity abutting the major fissure on the right upper lobe appears stable. There is now an irregular area of stellate consolidation along the anterior inferior aspect of the ri ght upper lobe measuring approximately 4.5 x 1.7 x 0.8 cm with surrounding groundglass infiltrate. Mediastinum/nodes: Mediastinal structures not ideally evaluated due to lack of intravenous contrast although no gross evidence of pathologic-appearing hilar or mediastinal adenopathy Heart and vessels: negative. Musculoskeletal / Body wall: negative. Upper abdomen: Visualized abdominal viscera negative. IMPRESSION: There is a new focal irregular stellate area of consolidation along the anterior inferior aspect of t he right upper lobe as described above with surrounding groundglass infiltrate. Clinical correlation needed. The differential diagnosis would include an acute infectious/inflammatory process although neoplastic process not excluded given the clinical history of lung cancer Report Dictated By: Phyllis Palumbo MD at 08/20/2018 10:42 AM Report E-Signed By: Phyllis Palumbo MD at 08/20/2018 10:50 AM WSN:[email or web address]
== END ==
LOC: CT 09:52
PROVIDERS: ATTEND Radiology Radiation Oncology
DX: R91.8 Other nonspecific abnormal finding of lung field (principal)
CPT/HCPCS: 71250

== ENCOUNTER 2018-08-27 10:00 | Outpatient (RCR) | payer MEDICARE, OTHER ==
[2018-08-27] MEDS ORDERED: INFLUENZA VIRUS VAC 0.5ML SYR IM ONLY ONE (10:40)
--- NOTE | 2018-08-27 19:43 | ONCOLOGY FOLLOW UP NOTE ---
EVENT DATE: August 27, 2018 DIAGNOSES AND ONCOLOGY TREATMENT HISTORY 1. Presumed non-small cell lung carcinoma involving the right lung. Patient presented with a right hilar mass with abnormal PET/CT scan in July 2017. Patient was poor risk for biopsy due to severe COPD. Patient completed definitive external beam radiotherapy to a total dose of 6400 cGy, completed in August 2017. 2. Patient has peripheral neuropathy involving the upper and lower extremities bilaterally of unclear etiology. HISTORY OF PRESENT ILLNESS The patient presents today with her , Nic, for followup. The patient's main complaint is her worsening upper and lower extremity weakness. She is now in a wheelchair and ambulates only short distances with assistance. The patient continues on supplemental oxygen. She is currently at 3L. The patient reports her shortness of breath is stable. She denies significant cough or chest pain. The patient continues to follow closely with her primary care provider who is managing her hypothyroidism. She is additionally following with a neurologist for workup of her worsening weakness. The patient underwent a CT scan of the chest on August 20, 2018, which shows a new focal, regular, solid area of consolidation along the anteroinferior aspect of the right upper lobe. Correlating this with her previous radiotherapy portals, this area is within her radiation gregorio. PAST MEDICAL HISTORY 1. Bronchogenic carcinoma radiographic diagnosis, status post definitive radiotherapy. 2. COPD. 3. History of polycythemia shingles. 4. Hypothyroidism. 5. Left olecranon bursitis. 6. Cor pulmonale with pulmonary hypertension. 7. GERD. 8. History of a heart attack. 9. History of neck injury as a child. 10. Status post hysterectomy. ALLERGIES No known drug allergies. MEDICATIONS 1. Sulfacetamide sodium eye drops. 2. Furosemide. 3. Levothyroxine 125 mcg daily. 4. Mirtazapine 15 mg. 5. Tiotropium bromide inhaler. 6. Baby aspirin. SOCIAL HISTORY Patient is a current smoker. She is with adult children. No drug use. FAMILY HISTORY Noncontributory. PHYSICAL EXAMINATION CONSTITUTIONAL/GENERAL: Patient is sitting comfortably in a wheelchair in no acute distress. HEENT: Pupils equal, round, and reactive to light and accommodation. Extraocular movements are intact. There are no lesions in the oropharynx. NECK: Supple. Trachea midline. LYMPHATIC SURVEY: No palpable supraclavicular lymphadenopathy bilaterally. LUNGS: Notable for decreased breath sounds bilaterally with faint rhonchi appreciable in the right upper lung field. There is no dullness to percussion. CARDIOVASCULAR: Regular rate and rhythm. Normal S1, S2. No murmurs, rubs, or gallops. ABDOMEN: Soft, nontender with active bowel sounds. No hepatosplenomegaly. EXTREMITIES: No edema, clubbing, or cyanosis. NEUROLOGIC: Patient is alert and oriented times three. Motor strength is 4+/5 on the right side for grasp and abduction. She has 5/5 motor strength on the left side in her upper extremity for grasp and arm abduction. PERFORMANCE STATUS 70% IMPRESSION 1. Bronchogenic carcinoma based on a radiographic diagnosis in the setting of severe chronic obstructive pulmonary disease. The patient was a marginal candidate for biopsy and completed definitive radiotherapy to a dose of 64 Gy. The patient on CT scan has a new patchy area of consolidation which is most likely inflammatory and likely is post-radiation inflammation rather than tumor recurrence. There are otherwise no suspicious findings on CT scan of the chest. 2. Progressively worsening peripheral neuropathy affecting both the upper and lower extremities. The patient is working with Neurology for this. The etiology of this is unclear. The patient's radiotherapy portals were reviewed, and her maximum spinal cord dose was 47 Gy, which is below cord tolerance. Additionally, the upper border of the radiation field was below the T1 vertebral body, and as such, it would unlikely that the radiotherapy could have caused her upper extremity peripheral neuropathy. Therefore, we overall would feel that the peripheral neuropathy is more likely caused by another etiology other than radiotherapy. Certainly, the patient's lower extremity weakness could be related to her previous radiotherapy field. However, this is typically associated with fecal and bladder incontinence as well as peripheral weakness and paresthesias. We encouraged the patient to follow up with her neurologist for further workup and management of her peripheral neuropathy. PLAN The patient will be scheduled for followup with Radiation Oncology in three months with a repeat CT scan of the chest to follow her area of consolidation. 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 DEIRDRE
== END 2018-09-28 14:28 | disposition home or self-care (01) ==
LOC: RAON 10:00
PROVIDERS: ATTEND Radiology Radiation Oncology
DX: C34.90 Malignant neoplasm of unspecified part of unspecified bronchus or lung (principal); Z23 Encounter for immunization
CPT/HCPCS: 90471; G0463; Q2037; 90674; 99213

== ENCOUNTER → 2018-12-21 | Outpatient (CLI) | payer MEDICARE, OTHER ==
[~2018-12-21] MED LIST changes: +KETO120S14 TP; -METR-160 PO; +METR500T15 PO; +POLY10DR20 OP
--- NOTE | 2018-12-21 15:30 | RADIOLOGY IMAGING REPORT ---
FACILITY: [facility] PATIENT NAME: Toña Yoder : 1950 MR: [id number] V: [id number] EXAM DATE: ORDERING PHYSICIAN: WIN ESPINZOA TECHNOLOGIST: Location: [facility] Patient: Toña Yoder : 1950 Visit/Account:[id number] Date of Sevice: 12/21/2018 CT CHEST ABDOMEN PELVIS W/O CON HISTORY: Answer, shortness of breath, cough ADDITIONAL HISTORY: None. TECHNIQUE: Contiguous axial images acquired through the chest abdomen and pelvis without IV contrast. Coronal and sagittal reformatting was also performed.Dose Lowering Technique One of the following dose optimization techniques was utilized in the performance of this exam: Autom ated exposure control; adjustment of the mA and/or kV according to the patient's size; or use of an i terative reconstruction technique. Specific details can be referenced in the facility's radiology C T exam operational policy. COMPARISON: CT chest August 20, 2018 FINDINGS: CHEST: Lungs/Pleura: Centrilobular emphysema again seen throughout the lungs. Biapical pleural thickening appears similar to the prior study. Previously noted consolidation along the anterior inferior aspect right upper lobe appears more promi nent and now extends medially surrounding the right hilum. There is more bronchial thickening and ho neycombing medially in the right upper lobe. Increasing linear stranding is present in the medial ri ght lower lobe as well. The groundglass opacities in the right upper lobe appear less prominent Mediastinum/lymph nodes: Mediastinal structures not ideally evaluated due to lack of intravenous con trast although no gross evidence of pathologically enlarged hilar mediastinal lymph nodes Heart/vessels: Negative. Bones/soft tissues: Spondylotic changes of the thoracic spine. No aggressive appearing bone lesions are seen ABDOMEN AND PELVIS: Hepatobiliary: Negative. Spleen: Negative. Pancreas: Negative. Adrenals: Negative. Kidneys ureters and bladder : Negative. Genitalia: Hysterectomy GI: There is a small hiatal hernia. There is a moderate amount of fecal material seen throughout c olon which can be seen with constipation Vessels/spaces/nodes: Mild atherosclerotic calcifications in the abdominal aorta Bones/soft tissues: No aggressive appearing bone lesions are seen. There are spondylotic changes tamara mbar spine. Just above the umbilicus there is a ventral hernia containing containing omentum. Hernia opening jerry sures approximately 8 mm Additional findings: None pertinent. IMPRESSION: Centrilobular emphysema and biapical pleural thickening appears similar to the prior study The previously noted consolidation along the anterior inferior aspect right upper lobe appears more p rominent now extends medially surrounding the right hilum. There is more central peribronchial thick ening and honeycombing in the right upper lobe and increasing linear stranding in the medial right lo wer lobe. These changes could be postradiation in nature although clinical follow-up recommended Small hiatal hernia Moderate amount of fecal material throughout colon which can seen with constipation Just above the umbilicus there is a small ventral hernia containing omentum. Report Dictated By: Phyllis Palumbo MD at 12/21/2018 3:12 PM Report E-Signed By: Phyllis Palumbo MD at 12/21/2018 3:26 PM WSN:[email or web address]
== END ==
LOC: CT 11:00
PROVIDERS: ATTEND Radiology Radiation Oncology
DX: K59.00 Constipation, unspecified (principal); K44.9 Diaphragmatic hernia without obstruction or gangrene; K42.9 Umbilical hernia without obstruction or gangrene; R91.8 Other nonspecific abnormal finding of lung field
CPT/HCPCS: 71250; 74176

== ENCOUNTER 2018-12-29 14:00 | Outpatient (RCR) | payer MEDICARE, OTHER ==
--- NOTE | 2018-12-29 21:03 | ONCOLOGY FOLLOW UP NOTE ---
EVENT DATE: December 29, 2018 CHIEF COMPLAINT Patient is here to review an updated CT scan of the thorax. Ongoing surveillance with prior history of external beam radiotherapy for medically inoperable non-small cell carcinoma of the right lung, presenting with a right perihilar mass and mediastinal lymphadenopathy. Patient received external beam radiotherapy to 5400 cGy to the regional lymph nodes and primary mass with boost of another 1000 cGy to the primary mass, combined dose 6400 cGy, completed 08/24/17. Underlying oxygen-dependent COPD. INTERVAL HISTORY Patient was seen with her daughter, who moved up from [place] to be closer to her mother. She is a pleasant, 68-year-old lady who is here to go over her radiographic studies. She denies any significant cough or hemoptysis. Her oxygen requirements have been stable at 3L. She does have moderately severe deconditioning which is multifactorial, and she was examined in the wheelchair today. Patient denies any hemoptysis. Denies any new headaches or any new bone pain. CT scan of the thorax on 12/21/18 was reviewed carefully with minor post- radiation change in the right hilum with no signs of tumor recurrence in my opinion. Stable small lymph nodes on the mediastinum. Liver and pelvis images were also unremarkable. MEDICATIONS Confirmed from [employer] EMR. ALLERGIES None. PAST MEDICAL HISTORY 1. Non-small cell lung carcinoma. 2. COPD. 3. History of secondary erythrocytosis with phlebotomy in 2007. 4. History of shingles 2013. 5. Hypothyroidism. 6. Pulmonary hypertension. 7. GERD. 8. History of prior coronary artery disease with previous [place]. SURGICAL HISTORY Hysterectomy in 1998. REVIEW OF SYSTEMS See scanned notes to the EMR. Stable oxygen requirements. She has muscle weakness, not new. PHYSICAL EXAMINATION GENERAL: Pleasant 68-year-old female in fair general clinical shape. KPS 70. LUNGS: Distant breath sounds bilaterally. HEART: Heart sounds regular. ABDOMEN: Soft. No gross organomegaly, mass, or tenderness. EXTREMITIES: No edema or cyanosis. IMPRESSION A 68-year-old lady who is approximately a year and a half remote from non-small cell carcinoma of the lung which radiographically was stage III. She has done exceptionally well in my opinion with prior radiation program with no signs of tumor reactivation at this time. PLAN Return to clinic in six months with an updated CT scan of the thorax. Continue general medical care with Dr. Oliva per schedule. MTDD
[2019-02-23] MEDS ORDERED: FURO-45 PO (14:02)
[2019-02-23] MEDS ORDERED: LEVO137T23 PO (14:05)
[2019-02-23] MEDS ORDERED: ALBU8.5H IH (14:05)
[2019-02-23] MEDS ORDERED: NYST15CR32 TP (14:13)
[2019-02-23] MEDS ORDERED: KETO120S14 TP (14:13)
[2019-02-23] MEDS ORDERED: FLUT1BLS3 INH (14:16)
[2019-03-25] MEDS ORDERED: HYDR30CR10 TP (16:11)
== END 2019-03-28 ==
LOC: RAON 14:00
PROVIDERS: ATTEND Radiology Radiation Oncology
DX: Z85.118 Personal history of other malignant neoplasm of bronchus and lung (principal)

== ENCOUNTER → 2019-02-09 | Outpatient (CLI) | payer MEDICARE, OTHER ==
[2019-02-09 10:16] LABS: PLATELET COUNT, AUTOMATED 238 K/uL (150-450)
[2019-02-09 11:38] LABS: LDL CHOLESTEROL 88 mg/dl
== END ==
LOC: LAB 09:51
PROVIDERS: ATTEND Internal Medicine
DX: Z00.00 Encounter for general adult medical examination without abnormal findings (principal); E03.9 Hypothyroidism, unspecified; I10 Essential (primary) hypertension; J44.9 Chronic obstructive pulmonary disease, unspecified
CPT/HCPCS: 36415; 81001; 82040; 82247; 82310; 82374; 82435; 82465; 82565; 82947; 83718; 84075; 84132; 84155; 84295; 84439; 84443; 84450; 84460; 84478; 84520; 85025

== ENCOUNTER → 2019-05-25 | Outpatient (CLI) | payer MEDICARE, OTHER ==
[~2019-05-25] MED LIST changes: +FLUT1BLS3 INH; +HYDR30CR10 TP; +LEVO137T23 PO; +NYST15CR32 TP
[2019-05-25 16:26] LABS: PLATELET COUNT, AUTOMATED 227 K/uL (150-450)
== END ==
LOC: LAB 16:09
PROVIDERS: ATTEND Internal Medicine
DX: E03.9 Hypothyroidism, unspecified (principal); J44.9 Chronic obstructive pulmonary disease, unspecified; C34.90 Malignant neoplasm of unspecified part of unspecified bronchus or lung; G62.9 Polyneuropathy, unspecified
CPT/HCPCS: 36415; 82040; 82247; 82310; 82374; 82435; 82565; 82947; 84075; 84132; 84155; 84295; 84439; 84443; 84450; 84460; 84520; 85025

== ENCOUNTER → 2019-06-02 | Outpatient (CLI) | payer MEDICARE, OTHER ==
--- NOTE | 2019-06-02 08:41 | RADIOLOGY IMAGING REPORT ---
FACILITY: [facility] PATIENT NAME: Toña Yoder : 1950 MR: [id number] V: [id number] EXAM DATE: ORDERING PHYSICIAN: HODA RODRIGUEZ TECHNOLOGIST: Location: [facility] [place] Patient: Toña Yoder : 1950 Visit/Account:[id number] Date of Sevice: 06/02/2019 CHEST PA LAT History: Lung Cancer Additional history: Status post radiotherapy for lung cancer. FINDINGS: 12/21/2018. Comparison studies: Comparison chest x-ray 07/01/[address] Tubes and Lines: None. Lungs and pleura: There is right perihilar consolidation status post radiotherapy of a right hilar mass. Lung parenchyma otherwise well-aerated and unremarkable. Mediastinum: Right hilar scarring per above Cardiac silhouette: normal . Osseous structures: Unremarkable for age . IMPRESSION: Post radiation treatment of a right hilar lung cancer with small area of consolidated lung which pr obably represents radiotherapy changes although persistent malignancy cannot be excluded. Report Dictated By: Memo Mai MD at 06/02/2019 8:31 AM Report E-Signed By: Memo Mai MD at 06/02/2019 8:36 AM WSN:[id number]
== END ==
LOC: RAD 07:58
PROVIDERS: ATTEND Internal Medicine
DX: C34.90 Malignant neoplasm of unspecified part of unspecified bronchus or lung (principal); Z92.3 Personal history of irradiation; J44.9 Chronic obstructive pulmonary disease, unspecified; E03.9 Hypothyroidism, unspecified; G62.9 Polyneuropathy, unspecified
CPT/HCPCS: 71046

== ENCOUNTER → 2019-06-02 | Outpatient (CLI) | payer MEDICARE, OTHER ==
--- NOTE | 2019-06-02 09:16 | RADIOLOGY IMAGING REPORT ---
FACILITY: [facility] PATIENT NAME: Toña Yoder : 1950 MR: [id number] V: [id number] EXAM DATE: ORDERING PHYSICIAN: WIN ESPINOZA TECHNOLOGIST: Location: [facility] [place] Patient: Toña Yoder : 1950 Visit/Account:[id number] Date of Sevice: 06/02/2019 CT CHEST ABDOMEN PELVIS W/O CON HISTORY: Status post radiotherapy for right hilar lung cancer. Follow-up. ADDITIONAL HISTORY: None. TECHNIQUE: Contiguous axial images acquired through the chest abdomen and pelvis without IV contrast. Coronal and sagittal reformatting was also performed. One of the following dose optimization techn iques was utilized in the performance of this exam: Automated exposure control; adjustment of the mA and/or kV according to the patient's size; or use of an iterative reconstruction technique. Specifi c details can be referenced in the facility's radiology CT exam operational policy. COMPARISON: Comparison CT chest abdomen pelvis 12/21/2018. FINDINGS: CHEST: Lungs/Pleura: Again seen is an area of right hilar consolidation in the location of the treated lung cancer. This appears stable with the exception of slight increased consolidation in the right anter ior mediastinal pleura (axial image 138 series 4) which demonstrates increased in size previously thi s area measured 1.9 x 0.9 cm now measures 2.5 x 1.2 cm. This is contiguous with a mild anterior medi astinal pleural thickening. A 2 mm micronodule in the right minor fissure is visible on the previous study and likely represents a small interlobar lymph node. No developing pulmonary nodules are seen. Again noted is a centrilobular emphysema with numerous small bulla most extensive in the upper lung z ones. No evidence of pleural effusions. Mediastinum/lymph nodes: No developing mediastinal adenopathy. Heart/vessels: Negative. Bones/soft tissues: Negative ABDOMEN AND PELVIS: Hepatobiliary: Liver appears normal. No liver lesions are seen. Gallbladder unremarkable. Spleen: Negative. Pancreas: Negative. Adrenals: Negative. Kidneys ureters and bladder : Negative. Genitalia: Remote hysterectomy. GI: Moderate fecal retention to the colon which is nondistended. Vessels/spaces/nodes: No evidence of adenopathy. Vasculature unremarkable for age. Minimal atheros clerosis. Bones/soft tissues: Degenerative changes are seen at the pubic symphysis and there is a small perisym physeal erosion in the left pubic bone which is unchanged from the previous study. This is likely re lated to the arthrosis. There are no developing bone lesions. Additional findings: There is a small ventral midline abdominal wall hernia (axial image 127 series 2) which contains peritoneal fat. Mouth of the hernia measures 1.4 cm diameter. This is unchanged. IMPRESSION: Post radiation treatment of the right hilar bronchial malignancy again noted. This is stable with t he exception of slight increased size of consolidation the right anterior mediastinal pleura. This m ay well represent evolving radiation sequela . However, pleural resurgent disease cannot be excluded . Consider PET/CT which would be helpful in differentiating these two entities. Stable micronodule right minor fissure likely an interlobar lymph node. No distant metastatic diseas e seen. Centrilobular emphysema. Small fat containing ventral abdominal wall hernia unchanged. Report Dictated By: Memo Mai MD at 06/02/2019 8:45 AM Report E-Signed By: Memo Mai MD at 06/02/2019 9:10 AM WSN:[id number]
== END ==
LOC: CT 00:06
PROVIDERS: ATTEND Radiology Radiation Oncology
DX: J43.2 Centrilobular emphysema (principal); K43.9 Ventral hernia without obstruction or gangrene
CPT/HCPCS: 71250; 74176